=== PATIENT | female | born 1950 | race Native Hawaiian/Other Pacific Islander ===

== ENCOUNTER 2016-07-31 08:11 | Outpatient (CLI) | payer OTHER ==
[2016-07-31 08:48] LABS: POTASSIUM 4.1 mmol/L (3.6-5.2)
== END 2016-07-31 19:27 | disposition home or self-care (01) ==
LOC: LABW 08:11
PROVIDERS: Surgery Vascular Surgery
DX: N18.4 Chronic kidney disease, stage 4 (severe) (principal); Z79.899 Other long term (current) drug therapy; Z51.81 Encounter for therapeutic drug level monitoring
CPT/HCPCS: 36415; 80048; 85018

== ENCOUNTER 2016-12-02 08:43 | Outpatient (CLI) | payer OTHER | END 2016-12-02 19:31 | disposition home or self-care (01) | LOC: MRI 08:43 | DX: M25.571 Pain in right ankle and joints of right foot (principal); M54.31 Sciatica, right side ==

== ENCOUNTER 2017-08-02 08:14 | Outpatient (CLI) | payer OTHER ==
[2017-08-02 09:09] LABS: POTASSIUM 4.1 mmol/L (3.6-5.2)
[2017-08-02 09:14] LABS: PLATELET COUNT 548 K/uL (152-353)
== END 2017-08-02 20:03 | disposition home or self-care (01) ==
LOC: LABW 08:14
PROVIDERS: Internal Medicine Nephrology
DX: I12.9 Hypertensive chronic kidney disease with stage 1 through stage 4 chronic kidney disease, or unspecified chronic kidney disease (principal); N18.4 Chronic kidney disease, stage 4 (severe); E78.4 Other hyperlipidemia; D63.1 Anemia in chronic kidney disease; E79.0 Hyperuricemia without signs of inflammatory arthritis and tophaceous disease; I73.89 Other specified peripheral vascular diseases; R80.8 Other proteinuria; I70.1 Atherosclerosis of renal artery
CPT/HCPCS: 36415; 80061; 80069; 81000; 82043; 82570; 82728; 83540; 83550; 84155; 84550; 85027; 86140

== ENCOUNTER 2017-09-01 06:26 | Outpatient (CLI) | payer OTHER ==
[2017-09-01] MEDS ORDERED: ULORIC80 MG PO (07:01)
[2017-09-01] MEDS ORDERED: PANTOPRAZOLE 40MG TA PO (07:02)
[2017-09-01] MEDS ORDERED: NEURONTIN 100M100 MG PO (07:02)
[2017-09-01] MEDS ORDERED: ELIQUIS2.5 MG PO (07:03)
[2017-09-01] MEDS ORDERED: AMBIEN5 MG PO (07:04)
[2017-09-01] MEDS ORDERED: CHLORTHALID25 MG PO (07:04)
[2017-09-01] MEDS ORDERED: ESTR0.9T PO (07:04)
[2017-09-01] MEDS ORDERED: PROFERRIN- PO (07:05)
[2017-09-01] MEDS ORDERED: ROSUVASTATIN CA10 MG PO (07:06)
[2017-09-01] MEDS ORDERED: CANDESARTAN CILE4 MG PO (07:06)
== END 2017-09-01 06:29 | disposition short-term general hospital (02) ==
LOC: AMB 06:26
DX: R07.89 Other chest pain (principal); R06.09 Other forms of dyspnea
CPT/HCPCS: A0425; A0427

== ENCOUNTER 2017-09-01 06:35 | Emergency (ER) | payer OTHER ==
[~2017-09-01] VITALS: Ht 157.5 cm; Wt 53.5 kg
[2017-09-01 06:51] VITALS: TEMP 98.4
[2017-09-01] MEDS ORDERED: ULORIC80 MG PO (07:01)
[2017-09-01] MEDS ORDERED: PANTOPRAZOLE 40MG TA PO (07:02)
[2017-09-01] MEDS ORDERED: NEURONTIN 100M100 MG PO (07:02)
[2017-09-01] MEDS ORDERED: ELIQUIS2.5 MG PO (07:03)
[2017-09-01] MEDS ORDERED: ESTR0.9T PO (07:04)
[2017-09-01] MEDS ORDERED: CHLORTHALID25 MG PO (07:04)
[2017-09-01] MEDS ORDERED: AMBIEN5 MG PO (07:04)
[2017-09-01] MEDS ORDERED: PROFERRIN- PO (07:05)
[2017-09-01] MEDS ORDERED: CANDESARTAN CILE4 MG PO (07:06)
[2017-09-01] MEDS ORDERED: ROSUVASTATIN CA10 MG PO (07:06)
[2017-09-01 07:09] LABS: PLATELET COUNT 710 K/uL (152-353)
[2017-09-01 07:28] LABS: POTASSIUM 3.5 mmol/L (3.6-5.2)
[2017-09-01 16:35] VITALS: BP 101/58
== END 2017-09-01 16:45 | disposition short-term general hospital (02) ==
LOC: ED 06:35
DX: R07.89 Other chest pain (principal); R00.0 Tachycardia, unspecified
CPT/HCPCS: 36415; 80053; 82150; 82550; 83690; 84484; 85027; 85379; 96374; 99284; J2270

== ENCOUNTER 2017-09-01 16:44 | Outpatient (CLI) | payer OTHER ==
[~2017-09-01 16:44] MED LIST: AMBIEN5 MG PO; CANDESARTAN CILE4 MG PO; CHLORTHALID25 MG PO; ELIQUIS2.5 MG PO; ESTR0.9T PO; NEURONTIN 100M100 MG PO; PANTOPRAZOLE 40MG TA PO; PROFERRIN- PO; ROSUVASTATIN CA10 MG PO; ULORIC80 MG PO
== END 2017-09-01 16:51 | disposition short-term general hospital (02) ==
LOC: AMB 16:44
DX: R07.89 Other chest pain (principal); R00.0 Tachycardia, unspecified
CPT/HCPCS: A0425; A0427

== ENCOUNTER 2017-11-02 09:56 | Outpatient (CLI) | payer OTHER | END 2017-11-02 09:58 | disposition short-term general hospital (02) | LOC: AMB 09:56 | DX: I49.8 Other specified cardiac arrhythmias (principal); R07.89 Other chest pain; R06.02 Shortness of breath | CPT/HCPCS: A0425; A0427 ==

== ENCOUNTER 2017-11-02 10:01 | Inpatient (IN) | payer OTHER ==
[~2017-11-02] VITALS: Ht 177.8 cm; Wt 46.3 kg
[2017-11-02] VITALS (9 sets, daily range): BP systolic 95–144; BP diastolic 45–65; TEMP 97.6–98; Ht 177.8 cm; Wt 46.3 kg
[2017-11-02 10:31] LABS: PLATELET COUNT 753 K/uL (152-353)
[2017-11-02 10:35] LABS: POTASSIUM 3.6 mmol/L (3.6-5.2)
[2017-11-03] VITALS: BP 124/51; TEMP 98.7
[2017-11-03 04:00] VITALS: BP 105/59; TEMP 98.6
[2017-11-03 05:53] LABS: PLATELET COUNT 625 K/uL (152-353)
[2017-11-03 06:12] LABS: POTASSIUM 3.2 mmol/L (3.6-5.2)
[2017-11-03 08:00] VITALS: BP 107/54; TEMP 97.4
[2017-11-03 12:00] VITALS: BP 126/62; TEMP 97.3
[2017-11-03 16:00] VITALS: BP 106/65; TEMP 98.7
[2017-11-03 20:18] VITALS: BP 105/57; TEMP 98.2
[2017-11-04] VITALS: BP 116/66; TEMP 98.8
[2017-11-04 04:00] VITALS: BP 117/63; TEMP 98.2
[2017-11-04 05:26] LABS: PLATELET COUNT 750 K/uL (152-353)
[2017-11-04 05:35] LABS: POTASSIUM 3.5 mmol/L (3.6-5.2)
[2017-11-04 08:00] VITALS: BP 119/57; TEMP 98.2
[2017-11-04 12:00] VITALS: BP 113/41; TEMP 97.7
[2017-11-04] MEDS ORDERED: COLC0.6T6 PO (14:49)
== END 2017-11-04 16:30 | disposition home or self-care (01) | DRG 315 ==
LOC: ED 10:01 → MED/SURG 12:33 → ED 12:33 → MED/SURG 12:33
PROVIDERS: ADMIT Family Medicine
DX: I31.9 Disease of pericardium, unspecified (principal); E87.1 Hypo-osmolality and hyponatremia; N18.5 Chronic kidney disease, stage 5; I48.92 Unspecified atrial flutter; I48.91 Unspecified atrial fibrillation; R00.0 Tachycardia, unspecified; D72.828 Other elevated white blood cell count; R79.1 Abnormal coagulation profile; Z79.01 Long term (current) use of anticoagulants
CPT/HCPCS: 36415; 80053; 81000; 83880; 84484; 85027; 85379; 85651; 86140; 93005; 93306; 94760; 96374; 99284; A9540; A9567; J0696; J1885; J1940

== ENCOUNTER 2018-01-26 08:58 | Outpatient (CLI) | payer OTHER ==
[~2018-01-26 08:58] MED LIST changes: +COLC0.6T6 PO
[2018-01-26 09:53] LABS: PLATELET COUNT 804 K/uL (152-353)
[2018-01-26 09:55] LABS: POTASSIUM 3.7 mmol/L (3.6-5.2)
== END 2018-01-26 19:16 | disposition home or self-care (01) ==
LOC: LABW 08:58
PROVIDERS: Internal Medicine Nephrology
DX: N18.4 Chronic kidney disease, stage 4 (severe) (principal); D63.1 Anemia in chronic kidney disease; E78.5 Hyperlipidemia, unspecified; I10 Essential (primary) hypertension; E79.0 Hyperuricemia without signs of inflammatory arthritis and tophaceous disease; I73.9 Peripheral vascular disease, unspecified; R80.9 Proteinuria, unspecified; I70.1 Atherosclerosis of renal artery
CPT/HCPCS: 36415; 80061; 80069; 81000; 82043; 82570; 82728; 83540; 83550; 84155; 84550; 85027; 86140

== ENCOUNTER 2018-06-10 08:50 | Outpatient (CLI) | payer OTHER ==
[2018-06-10 09:38] LABS: POTASSIUM 4.2 mmol/L (3.6-5.2)
[2018-06-10 09:59] LABS: PLATELET COUNT 592 K/uL (152-353)
== END 2018-06-10 23:21 | disposition home or self-care (01) ==
LOC: LABW 08:50
PROVIDERS: Internal Medicine Nephrology
DX: I48.91 Unspecified atrial fibrillation (principal); N18.4 Chronic kidney disease, stage 4 (severe); E78.5 Hyperlipidemia, unspecified; I10 Essential (primary) hypertension; E79.0 Hyperuricemia without signs of inflammatory arthritis and tophaceous disease; G62.9 Polyneuropathy, unspecified; R80.9 Proteinuria, unspecified; I70.1 Atherosclerosis of renal artery
CPT/HCPCS: 36415; 80061; 80069; 81000; 82043; 82570; 82728; 83540; 83550; 84155; 84550; 85027; 86140

== ENCOUNTER 2018-09-23 08:29 | Outpatient (CLI) | payer OTHER ==
[2018-09-23 09:08] LABS: PLATELET COUNT 579 K/uL (152-353)
[2018-09-23 09:40] LABS: POTASSIUM 4.2 mmol/L (3.6-5.2)
== END 2018-09-23 19:31 | disposition home or self-care (01) ==
LOC: LABW 08:29
PROVIDERS: Internal Medicine Nephrology
DX: I49.3 Ventricular premature depolarization (principal); I48.91 Unspecified atrial fibrillation; N18.4 Chronic kidney disease, stage 4 (severe); E78.5 Hyperlipidemia, unspecified; E79.0 Hyperuricemia without signs of inflammatory arthritis and tophaceous disease; G62.9 Polyneuropathy, unspecified; R80.9 Proteinuria, unspecified; I70.1 Atherosclerosis of renal artery; D64.9 Anemia, unspecified; I12.9 Hypertensive chronic kidney disease with stage 1 through stage 4 chronic kidney disease, or unspecified chronic kidney disease
CPT/HCPCS: 36415; 80061; 80069; 81000; 82043; 82570; 82728; 83540; 83550; 84155; 84436; 84443; 84479; 84550; 85027; 86140

== ENCOUNTER 2018-12-07 08:30 | Outpatient (CLI) | payer OTHER ==
[2018-12-07 09:11] LABS: POTASSIUM 3.8 mmol/L (3.6-5.2)
[2018-12-07 09:19] LABS: PLATELET COUNT 520 K/uL (152-353)
== END 2018-12-07 19:17 | disposition home or self-care (01) ==
LOC: LABW 08:30
PROVIDERS: Internal Medicine Nephrology
DX: N18.4 Chronic kidney disease, stage 4 (severe) (principal)
CPT/HCPCS: 36415; 80069; 85027

== ENCOUNTER 2019-01-26 10:22 | Outpatient (CLI) | payer OTHER | END 2019-01-26 20:31 | disposition home or self-care (01) | LOC: MAMMO 10:22 | DX: R92.8 Other abnormal and inconclusive findings on diagnostic imaging of breast (principal) ==

== ENCOUNTER 2019-03-06 08:19 | Outpatient (CLI) | payer OTHER ==
[2019-03-06 08:46] LABS: POTASSIUM 3.8 mmol/L (3.6-5.2)
[2019-03-06 08:57] LABS: PLATELET COUNT 503 K/uL (152-353)
== END 2019-03-06 20:33 | disposition home or self-care (01) ==
LOC: LABW 08:19
PROVIDERS: Surgery Vascular Surgery
DX: I70.221 Atherosclerosis of native arteries of extremities with rest pain, right leg (principal)
CPT/HCPCS: 36415; 80048; 85027

== ENCOUNTER 2019-03-23 08:55 | Outpatient (CLI) | payer OTHER ==
[2019-03-23 09:26] LABS: PLATELET COUNT 502 K/uL (152-353)
[2019-03-23 09:47] LABS: POTASSIUM 4.1 mmol/L (3.6-5.2)
== END 2019-03-23 19:43 | disposition home or self-care (01) ==
LOC: LABW 08:55
PROVIDERS: Internal Medicine Nephrology
DX: I12.9 Hypertensive chronic kidney disease with stage 1 through stage 4 chronic kidney disease, or unspecified chronic kidney disease (principal); N18.4 Chronic kidney disease, stage 4 (severe); E78.49 Other hyperlipidemia; N25.81 Secondary hyperparathyroidism of renal origin; E79.0 Hyperuricemia without signs of inflammatory arthritis and tophaceous disease; R80.9 Proteinuria, unspecified; N39.0 Urinary tract infection, site not specified; D63.1 Anemia in chronic kidney disease
CPT/HCPCS: 36415; 80061; 80069; 81000; 82043; 82570; 82728; 83540; 83550; 84155; 84550; 85027; 86140

== ENCOUNTER 2019-05-29 08:29 | Outpatient (CLI) | payer OTHER ==
[2019-05-29 09:37] LABS: POTASSIUM 3.4 mmol/L (3.6-5.2)
[2019-05-29 09:55] LABS: PLATELET COUNT 500 K/uL (152-353)
== END 2019-05-29 20:12 | disposition home or self-care (01) ==
LOC: LABW 08:29
PROVIDERS: Internal Medicine Nephrology
DX: I12.9 Hypertensive chronic kidney disease with stage 1 through stage 4 chronic kidney disease, or unspecified chronic kidney disease (principal); N18.4 Chronic kidney disease, stage 4 (severe); E78.49 Other hyperlipidemia; E79.0 Hyperuricemia without signs of inflammatory arthritis and tophaceous disease; E87.79 Other fluid overload; R80.8 Other proteinuria
CPT/HCPCS: 36415; 80061; 80069; 81000; 82043; 82306; 82570; 82728; 83540; 83550; 84155; 85027

== ENCOUNTER → 2019-11-23 | Outpatient (CLI) | payer OTHER ==
[2019-11-23 09:48] LABS: POTASSIUM 4.1 mmol/L (3.6-5.2)
[2019-11-23 10:08] LABS: PLATELET COUNT 447 K/uL (152-353)
== END ==
LOC: LABW 08:20
PROVIDERS: Internal Medicine Nephrology
DX: E78.49 Other hyperlipidemia (principal); E87.79 Other fluid overload; N18.4 Chronic kidney disease, stage 4 (severe); I48.91 Unspecified atrial fibrillation; N25.81 Secondary hyperparathyroidism of renal origin; G47.09 Other insomnia; E79.0 Hyperuricemia without signs of inflammatory arthritis and tophaceous disease; R80.8 Other proteinuria; I12.9 Hypertensive chronic kidney disease with stage 1 through stage 4 chronic kidney disease, or unspecified chronic kidney disease
CPT/HCPCS: 36415; 80061; 80069; 81000; 82043; 82570; 82728; 83540; 83550; 84155; 84550; 85027; 86140

== ENCOUNTER 2020-04-01 08:42 | Outpatient (CLI) | payer OTHER | END 2020-04-01 20:25 | disposition home or self-care (01) | LOC: MRI 08:42 | DX: M25.551 Pain in right hip (principal) ==

== ENCOUNTER 2020-04-10 08:29 | Outpatient (CLI) | payer OTHER ==
[2020-04-10 08:54] LABS: POTASSIUM 4.2 mmol/L (3.6-5.2)
== END 2020-04-10 21:34 | disposition home or self-care (01) ==
LOC: LABW 08:29
PROVIDERS: Surgery
DX: Z01.812 Encounter for preprocedural laboratory examination (principal)
CPT/HCPCS: 36415; 80048

== ENCOUNTER 2020-04-19 07:45 | Outpatient (CLI) | payer OTHER ==
[2020-04-19 08:16] LABS: PLATELET COUNT 570 K/uL (152-353)
[2020-04-19 09:15] LABS: POTASSIUM 3.7 mmol/L (3.6-5.2)
== END 2020-04-19 22:15 | disposition home or self-care (01) ==
LOC: LABW 07:45
PROVIDERS: ATTEND Internal Medicine Nephrology
DX: E78.49 Other hyperlipidemia (principal); E87.79 Other fluid overload; N18.4 Chronic kidney disease, stage 4 (severe); I70.1 Atherosclerosis of renal artery; R80.8 Other proteinuria; I12.9 Hypertensive chronic kidney disease with stage 1 through stage 4 chronic kidney disease, or unspecified chronic kidney disease
CPT/HCPCS: 36415; 80061; 80069; 81000; 82043; 82570; 82728; 83550; 84155; 84550; 85027; 86140

== ENCOUNTER 2020-06-24 08:30 | Outpatient (CLI) | payer OTHER ==
[2020-06-24 09:02] LABS: PLATELET COUNT 614 K/uL (152-353)
[2020-06-24 09:34] LABS: POTASSIUM 3.8 mmol/L (3.6-5.2)
== END 2020-06-24 19:19 | disposition home or self-care (01) ==
LOC: LABW 08:30
PROVIDERS: ATTEND Internal Medicine Nephrology
DX: E78.49 Other hyperlipidemia (principal); N18.4 Chronic kidney disease, stage 4 (severe); I12.9 Hypertensive chronic kidney disease with stage 1 through stage 4 chronic kidney disease, or unspecified chronic kidney disease; D64.89 Other specified anemias
CPT/HCPCS: 36415; 80061; 80069; 81000; 82043; 82570; 82728; 83550; 84155; 84550; 85027; 86140

== ENCOUNTER 2020-07-10 09:26 | Inpatient (IN) | payer OTHER ==
[~2020-07-10] VITALS: Ht 157.5 cm; Wt 55.9 kg
[2020-07-10 09:33] VITALS: BP 105/67; TEMP 97.6
[2020-07-10 10:00] LABS: PLATELET COUNT 539 K/uL (152-353)
[2020-07-10 10:12] LABS: POTASSIUM 3.4 mmol/L (3.6-5.2)
[2020-07-10 15:22] VITALS: BP 149/62
[2020-07-10] MEDS ORDERED: CHLORTHALID25 MG PO (16:36)
[2020-07-10] MEDS ORDERED: TEMA30CA18 PO (16:37)
[2020-07-10] MEDS ORDERED: CANDESARTAN CILE4 MG PO (16:39)
[2020-07-10] MEDS ORDERED: PANTOPRAZOLE SO40 M3 PO (16:40)
[2020-07-10] MEDS ORDERED: APIX1TAB PO (16:41)
[2020-07-10] MEDS ORDERED: ESTR0.9T PO (16:41)
[2020-07-10 16:49] VITALS: BP 113/56; TEMP 98.7; Ht 157.5 cm; Wt 55.9 kg
[2020-07-10 20:00] VITALS: BP 137/81; TEMP 99.2
[2020-07-11] VITALS: BP 93/43; TEMP 99.1
[2020-07-11 03:50] VITALS: BP 110/41; TEMP 99
[2020-07-11 05:51] LABS: PLATELET COUNT 399 K/uL (152-353)
[2020-07-11 06:33] LABS: POTASSIUM 3.5 mmol/L (3.6-5.2)
[2020-07-11 08:00] VITALS: BP 126/73; TEMP 98.1
[2020-07-11 12:00] VITALS: BP 116/44; TEMP 98.1
[2020-07-11 16:00] VITALS: BP 165/63; TEMP 98.4
[2020-07-11 20:00] VITALS: BP 150/69; TEMP 98.8
[2020-07-12 00:13] VITALS: BP 99/42; TEMP 98.8
[2020-07-12 04:28] VITALS: BP 106/49; TEMP 98.2
[2020-07-12 05:51] LABS: PLATELET COUNT 432 K/uL (152-353)
[2020-07-12 06:03] LABS: POTASSIUM 3.5 mmol/L (3.6-5.2)
[2020-07-12 08:00] VITALS: BP 118/48; TEMP 98.1
[2020-07-12 12:00] VITALS: BP 146/59; TEMP 98.2
[2020-07-12 16:00] VITALS: BP 148/61; TEMP 97.8
[2020-07-12 20:00] VITALS: BP 133/64; TEMP 98.3
[2020-07-13] VITALS: BP 122/50; TEMP 98.4
[2020-07-13 04:00] VITALS: BP 113/60; TEMP 98.1
[2020-07-13 05:45] LABS: PLATELET COUNT 439 K/uL (152-353)
[2020-07-13 05:55] LABS: POTASSIUM 3.6 mmol/L (3.6-5.2)
[2020-07-13 07:40] VITALS: BP 133/60; TEMP 98.3
[2020-07-13 11:32] VITALS: BP 116/50; TEMP 97.5
[2020-07-13 16:00] VITALS: BP 151/68; TEMP 98.3
[2020-07-13 20:00] VITALS: BP 171/66; TEMP 98.3
[2020-07-14] VITALS: BP 137/58; TEMP 98.1
[2020-07-14 04:00] VITALS: BP 146/60; TEMP 98
[2020-07-14 05:15] LABS: PLATELET COUNT 450 K/uL (152-353)
[2020-07-14 06:06] LABS: POTASSIUM 2.5 mmol/L (3.6-5.2)
[2020-07-14 08:00] VITALS: BP 149/69; TEMP 98.3
[2020-07-14 12:03] VITALS: BP 159/68; TEMP 98.5
[2020-07-14 16:00] VITALS: BP 169/72; TEMP 97.8
[2020-07-14 20:00] VITALS: BP 147/69; TEMP 98
[2020-07-15] VITALS (7 sets, daily range): BP systolic 132–160; BP diastolic 65–84; TEMP 97.9–98.3
[2020-07-15 05:05] LABS: PLATELET COUNT 433 K/uL (152-353)
[2020-07-15 05:31] LABS: POTASSIUM 3.1 mmol/L (3.6-5.2)
[2020-07-16 03:52] VITALS: BP 129/52; TEMP 98.1
[2020-07-16 05:26] LABS: PLATELET COUNT 420 K/uL (152-353)
[2020-07-16 05:43] LABS: POTASSIUM 3.1 mmol/L (3.6-5.2)
[2020-07-16 08:00] VITALS: BP 150/79; TEMP 99
[2020-07-16 12:00] VITALS: BP 98/48; TEMP 98.3
[2020-07-16 16:00] VITALS: BP 117/63; TEMP 97.9
[2020-07-16 19:53] VITALS: BP 121/60; TEMP 97.7
[2020-07-16 23:34] VITALS: BP 117/57; TEMP 98.8
[2020-07-17 03:39] VITALS: BP 123/61; TEMP 98.7
[2020-07-17 05:27] LABS: PLATELET COUNT 343 K/uL (152-353)
[2020-07-17 05:54] LABS: POTASSIUM 3.8 mmol/L (3.6-5.2)
[2020-07-17 08:00] VITALS: BP 151/70; TEMP 99.1
== END 2020-07-17 12:00 | disposition home or self-care (01) | DRG 372 ==
LOC: ED 09:26 → MED/SURG 14:30
PROVIDERS: Internal Medicine Endocrinology, Diabetes & Metabolism; ADMIT Family Medicine; ATTEND Internal Medicine
DX: A04.72 Enterocolitis due to Clostridium difficile, not specified as recurrent (principal); E87.2 Acidosis; N17.8 Other acute kidney failure; I48.91 Unspecified atrial fibrillation; E78.49 Other hyperlipidemia; K21.9 Gastro-esophageal reflux disease without esophagitis; E87.6 Hypokalemia; I12.9 Hypertensive chronic kidney disease with stage 1 through stage 4 chronic kidney disease, or unspecified chronic kidney disease; N18.30 Chronic kidney disease, stage 3 unspecified
CPT/HCPCS: 36415; 80053; 81000; 82150; 83690; 83735; 85027; 87040; 87324; 87449; 87635; 96365; 96366; 96374; 96375; 99284; J0696; J0744; J1650; J2405; J2550; J3475; J3480; J3490; U0003

== ENCOUNTER 2020-11-01 08:56 | Outpatient (CLI) | payer OTHER ==
[~2020-11-01 08:56] MED LIST changes: +APIX1TAB PO; +PANTOPRAZOLE SO40 M3 PO; +TEMA30CA18 PO
== END 2020-11-01 22:54 | disposition home or self-care (01) ==
LOC: NM 08:56
PROVIDERS: ATTEND Podiatrist
DX: L89.892 Pressure ulcer of other site, stage 2 (principal)
CPT/HCPCS: A9561

== ENCOUNTER 2020-11-05 10:26 | Outpatient (CLI) | payer OTHER ==
[2020-11-05 10:50] LABS: PLATELET COUNT 591 K/uL (152-353)
[2020-11-05 11:29] LABS: POTASSIUM 3.3 mmol/L (3.6-5.2)
== END 2020-11-05 22:10 | disposition home or self-care (01) ==
LOC: LABW 10:26
PROVIDERS: ATTEND Internal Medicine Nephrology
DX: E78.49 Other hyperlipidemia (principal); E87.79 Other fluid overload; N18.4 Chronic kidney disease, stage 4 (severe); R19.7 Diarrhea, unspecified; R80.8 Other proteinuria; I12.9 Hypertensive chronic kidney disease with stage 1 through stage 4 chronic kidney disease, or unspecified chronic kidney disease; D64.89 Other specified anemias
CPT/HCPCS: 36415; 80061; 80069; 82043; 82306; 82570; 82728; 83540; 83550; 84155; 84550; 85027; 85652; 86140

== ENCOUNTER 2020-11-06 16:23 | Outpatient (CLI) | payer OTHER | END 2020-11-06 21:19 | disposition home or self-care (01) | LOC: LAB 16:23 | PROVIDERS: ATTEND Internal Medicine Nephrology | DX: E78.49 Other hyperlipidemia (principal); E87.79 Other fluid overload; N18.4 Chronic kidney disease, stage 4 (severe); R19.7 Diarrhea, unspecified; R80.8 Other proteinuria; I12.9 Hypertensive chronic kidney disease with stage 1 through stage 4 chronic kidney disease, or unspecified chronic kidney disease | CPT/HCPCS: 87324; 87449 ==

== ENCOUNTER 2021-02-03 08:56 | Outpatient (CLI) | payer OTHER ==
[2021-02-03 09:32] LABS: PLATELET COUNT 671 K/uL (152-353)
[2021-02-03 10:11] LABS: POTASSIUM 4.2 mmol/L (3.6-5.2)
== END 2021-02-03 19:25 | disposition home or self-care (01) ==
LOC: LABW 08:56
PROVIDERS: ATTEND Internal Medicine Nephrology
DX: E78.49 Other hyperlipidemia (principal); E87.70 Fluid overload, unspecified; I73.9 Peripheral vascular disease, unspecified; N18.4 Chronic kidney disease, stage 4 (severe); R79.82 Elevated C-reactive protein (CRP); R80.8 Other proteinuria; I12.9 Hypertensive chronic kidney disease with stage 1 through stage 4 chronic kidney disease, or unspecified chronic kidney disease
CPT/HCPCS: 36415; 80061; 80069; 81000; 82043; 82570; 82728; 83540; 83550; 84155; 84550; 85027; 86140

== ENCOUNTER 2021-04-04 16:04 | Outpatient (CLI) | payer OTHER ==
[2021-04-04 17:21] LABS: PLATELET COUNT 603 K/uL (152-353)
== END 2021-04-04 21:06 | disposition home or self-care (01) ==
LOC: LABW 16:04
PROVIDERS: ATTEND Emergency Medicine Undersea and Hyperbaric Medicine
DX: T86.821 Skin graft (allograft) (autograft) failure (principal); T81.89XA Other complications of procedures, not elsewhere classified, initial encounter
CPT/HCPCS: 36415; 85027; 93005

== ENCOUNTER 2021-05-08 10:24 | Inpatient (IN) | payer OTHER ==
[~2021-05-08] VITALS: Ht 157.5 cm; Wt 50.9 kg
[2021-05-08 14:07] VITALS: BP 117/51; TEMP 98.1; Ht 157.5 cm; Wt 50.9 kg
[2021-05-08 20:00] VITALS: BP 151/60; TEMP 98.3
[2021-05-09 08:00] VITALS: BP 124/60; TEMP 98.2
[2021-05-09 19:55] VITALS: BP 141/60; TEMP 98.2
[2021-05-10 08:00] VITALS: BP 122/45; BP 144/78; TEMP 97.6
[2021-05-10 20:22] VITALS: BP 130/61; TEMP 98.2
[2021-05-11 08:00] VITALS: BP 121/56; TEMP 98.3
[2021-05-11 19:51] VITALS: BP 147/60; TEMP 98.2
[2021-05-12 08:00] VITALS: BP 149/62; TEMP 98.3
[2021-05-12 20:11] VITALS: BP 134/110; TEMP 98.5
[2021-05-13 08:00] VITALS: BP 134/68; TEMP 98.4
[2021-05-13 20:00] VITALS: BP 134/61; TEMP 97.9
[2021-05-14 08:00] VITALS: BP 119/65; TEMP 97.4
[2021-05-14 20:14] VITALS: BP 143/44; TEMP 98.3
[2021-05-15 08:00] VITALS: BP 121/64; TEMP 98
[2021-05-15] MEDS ORDERED: TIMOLOL MAL0.5 % OPTH (17:28)
[2021-05-15] MEDS ORDERED: CHLORTHALID25 MG PO (17:29)
[2021-05-15] MEDS ORDERED: APIX1TAB PO (17:29)
[2021-05-15] MEDS ORDERED: PANTOPRAZOLE 40MG TA PO (17:31)
[2021-05-15] MEDS ORDERED: NEURONTIN 100M100 MG PO (17:31)
[2021-05-15] MEDS ORDERED: COZAAR25 MG PO (17:32)
[2021-05-15] MEDS ORDERED: FEBUXOSTAT80 MG PO (17:32)
[2021-05-15] MEDS ORDERED: FEXOFENADINE HC60 MG PO (17:33)
[2021-05-15] MEDS ORDERED: ROSUVASTATIN CAL5 MG PO (17:34)
[2021-05-15] MEDS ORDERED: ESTR0.9T PO (17:35)
[2021-05-15] MEDS ORDERED: VITAMIN D320 MCG PO (17:35)
[2021-05-15 20:09] VITALS: BP 149/55; TEMP 98.4
== END 2021-05-16 00:05 | disposition home or self-care (01) | DRG 560 ==
LOC: MED/SURG 10:24
PROVIDERS: ADMIT Internal Medicine Endocrinology, Diabetes & Metabolism; ATTEND Internal Medicine Endocrinology, Diabetes & Metabolism
DX: Z47.81 Encounter for orthopedic aftercare following surgical amputation (principal); T87.43 Infection of amputation stump, right lower extremity; Z89.511 Acquired absence of right leg below knee; I70.221 Atherosclerosis of native arteries of extremities with rest pain, right leg; R53.81 Other malaise; R48.8 Other symbolic dysfunctions; M62.81 Muscle weakness (generalized); R26.81 Unsteadiness on feet; Z74.1 Need for assistance with personal care; I48.91 Unspecified atrial fibrillation; G62.9 Polyneuropathy, unspecified; I12.9 Hypertensive chronic kidney disease with stage 1 through stage 4 chronic kidney disease, or unspecified chronic kidney disease; N18.9 Chronic kidney disease, unspecified; E78.5 Hyperlipidemia, unspecified; M10.9 Gout, unspecified; G47.00 Insomnia, unspecified; H40.9 Unspecified glaucoma; Z79.01 Long term (current) use of anticoagulants; M81.0 Age-related osteoporosis without current pathological fracture; J30.9 Allergic rhinitis, unspecified; K21.9 Gastro-esophageal reflux disease without esophagitis
CPT/HCPCS: 81000; 87070; 87077; 87081; 87186; 87205; 87635; G0283-GP; U0003

== ENCOUNTER 2021-06-18 19:43 | Emergency (ER) | payer OTHER ==
[~2021-06-18] VITALS: Ht 157.5 cm; Wt 49.9 kg
[~2021-06-18 19:43] MED LIST changes: +COZAAR25 MG PO; +FEBUXOSTAT80 MG PO; +FEXOFENADINE HC60 MG PO; +ROSUVASTATIN CAL5 MG PO; +TIMOLOL MAL0.5 % OPTH; +VITAMIN D320 MCG PO
[2021-06-18 21:08] LABS: PLATELET COUNT 595 K/uL (152-353)
[2021-06-18 21:18] LABS: POTASSIUM 3.9 mmol/L (3.6-5.2)
[2021-06-18 23:31] VITALS: BP 146/72; TEMP 98.5
== END 2021-06-18 23:31 | disposition home or self-care (01) ==
LOC: ED 19:43
PROVIDERS: Emergency Medicine
DX: K52.9 Noninfective gastroenteritis and colitis, unspecified (principal)
CPT/HCPCS: 36415; 80053; 83605; 83690; 84484; 85027; 96360; 96361; 96375; 99284; J2270

== ENCOUNTER 2021-07-02 12:40 | Outpatient (CLI) | payer OTHER | END 2021-07-02 18:56 | disposition home or self-care (01) | LOC: RAD 12:40 | PROVIDERS: ATTEND Nurse Practitioner Adult Health | DX: T87.89 Other complications of amputation stump (principal) ==

== ENCOUNTER 2021-07-24 10:16 | Outpatient (CLI) | payer OTHER ==
[2021-07-24 10:55] LABS: PLATELET COUNT 603 K/uL (152-353)
[2021-07-24 11:39] LABS: POTASSIUM 3.8 mmol/L (3.6-5.2)
== END 2021-07-24 19:13 | disposition home or self-care (01) ==
LOC: LABW 10:16
PROVIDERS: ATTEND Internal Medicine Nephrology
DX: E78.49 Other hyperlipidemia (principal); N18.4 Chronic kidney disease, stage 4 (severe); R79.82 Elevated C-reactive protein (CRP); I12.9 Hypertensive chronic kidney disease with stage 1 through stage 4 chronic kidney disease, or unspecified chronic kidney disease
CPT/HCPCS: 36415; 80061; 80069; 81000; 82043; 82306; 82570; 82728; 83540; 83550; 84155; 84550; 85027; 86140; 86335

== ENCOUNTER 2021-07-25 09:40 | Outpatient (CLI) | payer OTHER | END 2021-07-25 20:02 | disposition home or self-care (01) | LOC: LAB 09:40 | PROVIDERS: ATTEND Internal Medicine Nephrology | DX: I12.9 Hypertensive chronic kidney disease with stage 1 through stage 4 chronic kidney disease, or unspecified chronic kidney disease (principal); N18.4 Chronic kidney disease, stage 4 (severe) | CPT/HCPCS: 36415; 84165 ==

== ENCOUNTER 2021-12-29 12:56 | Outpatient (CLI) | payer OTHER | END 2021-12-29 19:12 | disposition home or self-care (01) | LOC: MAMMO 12:56 | PROVIDERS: ATTEND Nurse Practitioner | DX: N63.21 Unspecified lump in the left breast, upper outer quadrant (principal) | CPT/HCPCS: G0279 ==

== ENCOUNTER 2022-01-27 10:00 | Outpatient (CLI) | payer OTHER ==
[2022-01-27 10:46] LABS: PLATELET COUNT 412 K/uL (152-353)
[2022-01-27 11:19] LABS: POTASSIUM 3.9 mmol/L (3.6-5.2)
== END 2022-01-27 18:59 | disposition home or self-care (01) ==
LOC: LABW 10:00
PROVIDERS: ATTEND Internal Medicine Nephrology
DX: E78.49 Other hyperlipidemia (principal); I73.9 Peripheral vascular disease, unspecified; N18.4 Chronic kidney disease, stage 4 (severe); N25.81 Secondary hyperparathyroidism of renal origin; E79.0 Hyperuricemia without signs of inflammatory arthritis and tophaceous disease; R80.8 Other proteinuria; I12.9 Hypertensive chronic kidney disease with stage 1 through stage 4 chronic kidney disease, or unspecified chronic kidney disease
CPT/HCPCS: 36415; 80061; 80069; 81002; 82043; 82306; 82570; 82728; 83540; 83550; 84156; 84550; 85027; 86140

== ENCOUNTER 2022-06-10 13:30 | Outpatient (CLI) | payer OTHER | END 2022-06-10 19:18 | disposition home or self-care (01) | LOC: MRI 13:30 | PROVIDERS: ATTEND Orthopaedic Surgery | DX: M54.16 Radiculopathy, lumbar region (principal); M16.11 Unilateral primary osteoarthritis, right hip ==

== ENCOUNTER 2023-02-19 09:31 | Outpatient (CLI) | payer OTHER ==
[2023-02-19 11:03] LABS: PLATELET COUNT 427 K/uL (152-353)
[2023-02-19 15:50] LABS: POTASSIUM 4.7 mmol/L (3.6-5.2)
== END 2023-02-19 19:14 | disposition home or self-care (01) ==
LOC: LABW 09:31
PROVIDERS: ATTEND Internal Medicine Nephrology
DX: E78.49 Other hyperlipidemia (principal); E87.70 Fluid overload, unspecified; I48.91 Unspecified atrial fibrillation; N18.4 Chronic kidney disease, stage 4 (severe); N25.81 Secondary hyperparathyroidism of renal origin; E79.0 Hyperuricemia without signs of inflammatory arthritis and tophaceous disease; R80.8 Other proteinuria; I12.9 Hypertensive chronic kidney disease with stage 1 through stage 4 chronic kidney disease, or unspecified chronic kidney disease
CPT/HCPCS: 36415; 80061; 80069; 81002; 82043; 82550; 82570; 82728; 83036; 83540; 83550; 84156; 84550; 85027; 86140